=== PATIENT | female | born 1990 | race Caucasian/White ===

== ENCOUNTER → 2020-07-11 | Day surgery (SDC) | payer OTHER ==
[~2020-07-11] MED LIST: PERCOCET 5-3251 EACH PO
[2020-07-11 13:28] LABS: HCG (URINE) SCREEN NEGATIVE (NEGATIVE)
== END | disposition home or self-care (01) ==
LOC: FAS 12:49
PROVIDERS: Anesthesiology
DX: M67.432 Ganglion, left wrist (principal); Z20.822 Contact with and (suspected) exposure to COVID-19
CPT/HCPCS: 84703; J1100; J2250; J2405; J2704; J7120